=== PATIENT | male | born 1980 | race Caucasian/White ===

== ENCOUNTER 2016-10-28 05:51 | Emergency (ER) | payer BC ==
--- NOTE | 2016-10-28 06:18 | EDM.PDOC ---
ED HPI GENERAL MEDICAL PROBLEM - General Chief Complaint: Cardiovascular Problem Stated Complaint: A-FIB, HEART PROBLEMS Time Seen by Provider: 10/28/16 06:11 - History of Present Illness INITIAL COMMENTS - FREE TEXT/NARRATIVE: HISTORY AND PHYSICAL: History of present illness: Patient is a 36-year-old male with history of chronic intermittent nature fibrillation and hypothyroidism for which his medicines include metoprolol, eliquis, and thyroxine who presents with a concern of irregular heartbeat he's had no chest pain no shortness of breath no nausea vomiting no dizziness no other complaints. He states he's had this for years off and on these been cardioverted electrically multiple times he's followed by cardiology Dr. Green out of [facility]. Review of systems: As per history of present illness and below otherwise all systems reviewed and negative. Past medical history: As per history of present illness and as reviewed below otherwise noncontributory. Surgical history: As per history of present illness and as reviewed below otherwise noncontributory. Social history: No reported history of drug or alcohol abuse. Family history: As per history of present illness and as reviewed below otherwise noncontributory. Physical exam: HEENT: Atraumatic, normocephalic, pupils reactive, negative for conjunctival pallor or scleral icterus, mucous membranes moist, throat clear, neck supple, nontender, trachea midline. Lungs: Clear to auscultation, breath sounds equal bilaterally, chest nontender. Heart: S1S2, irregularly irregular with a rate ranging between 80 and 98 negative for clicks, rubs, or JVD. Abdomen: Soft, nondistended, nontender. Negative for masses or hepatosplenomegaly. Negative for costovertebral tenderness. Pelvis: Stable nontender. Genitourinary: Deferred. Rectal: Deferred. Extremities: Atraumatic, negative for cords or calf pain. Neurovascular unremarkable. Neuro: Awake, alert, oriented. Cranial nerves II through XII unremarkable. Cerebellum unremarkable. Motor and sensory unremarkable throughout. Exam nonfocal. Diagnostics: CBC CMP PT/INR troponin TSH chest x-ray EKG Therapeutics: IV O2 monitor Impression: #1 chronic intermittent atrial fibrillation #2 history of hypothyroidism Definitive disposition and diagnosis as appropriate pending reevaluation and review of above. Left Upper Chest Pain Score (Numeric/FACES): 2 - Related Data Allergies Allergy/AdvReac Type Severity Reaction Status Date / Time No Known Allergies Allergy Verified 10/28/16 05:59 Home Meds: Home Meds Apixaban [Eliquis] 5 mg PO BID 10/28/16 [History] Levothyroxine 25 mcg PO ACBREAKFAST 10/28/16 [History] Metoprolol Succinate 25 mg PO DAILY 10/28/16 [History] Omeprazole 20 mg PO DAILY 10/28/16 [History] ED ROS GENERAL - Review of Systems Review Of Systems: ROS reveals no pertinent complaints other than HPI. 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 Kolb who does not feel there is any role for cardioversion or admission at this time this is a chronic intermittent problem for which he is controlled with beta blockers and also on eliquis to manage stroke risk and that follow-up with his regular headstart teacher is in order. Last Recorded V/S: Last Vital Signs Temp 36.4 C 10/28/16 05:59 Pulse 108 H 10/28/16 05:59 Resp 16 10/28/16 05:59 BP 124/77 10/28/16 05:59 Pulse Ox 96 10/28/16 05:59 Departure - Departure Time of Disposition: 06:21 Disposition: Home, Self-Care 01 Condition: Good Clinical Impression: Atrial fibrillation Forms: ED Department Discharge Additional Instructions: The following information is given to patients seen in the emergency department who are being discharged to home. This information is to outline your options for follow-up care. We provide all patients seen in our emergency department with a follow-up referral. The need for follow-up, as well as the timing and circumstances, are variable depending upon the specifics of your emergency department visit. If you don't have a primary care physician on staff, we will provide you with a referral. We always advise you to contact your personal physician following an emergency department visit to inform them of the circumstance of the visit and for follow-up with them and/or the need for any referrals to a consulting specialist. The emergency department will also refer you to a specialist when appropriate. This referral assures that you have the opportunity for followup care with a specialist. All of these measure are taken in an effort to provide you with optimal care, which includes your followup. Under all circumstances we always encourage you to contact your private physician who remains a resource for coordinating your care. When calling for followup care, please make the office aware that this follow-up is from your recent emergency room visit. If for any reason you are refused follow-up, please contact the [facility] emergency department at and asked to speak to the emergency department charge nurse. Continue current medications follow-up with headstart teacher TIM as discussed continue current medications and return as needed as discussed
[2016-10-28 06:39] LABS: CHLORIDE,CL 108 mmol/L (98-110); SODIUM,NA 141 mmol/L (136-146)
[2016-10-28 06:44] VITALS: BP 112/70
--- NOTE | 2016-10-28 15:21 | CR ---
EXAM DATE: 10/28/16 PATIENT'S AGE: 36 Patient: GINGER BERNARD Facility: [place], [place] Site . Site : 1980 Study: XRay Chest [id number] 6:40:52 AM Ordering Physician: Abdelrahman Valiente Final Report: INDICATION: Atrial fibrillation. Chest tightness. Technique: AP portable chest x-ray. Findings: Heart size is upper limits normal mildly prominent. Pulmonary vascularity in the upper lungs is upper limits of normal is slightly prominent. The lungs are clear without infiltrate. Chest otherwise negative. Dictated by Uriel Zuleta MD @ Oct 28 2016 6:46AM (Electronic Signature) Report Signed by Proxy. LUIS
== END 2016-10-28 07:09 | disposition left against medical advice (07) ==
LOC: MW.ED 05:51
DX: I48.2 Chronic atrial fibrillation (principal); E03.9 Hypothyroidism, unspecified; Z79.899 Other long term (current) drug therapy
CPT/HCPCS: 36415; 71010; 71010-26; 80053; 84443; 84484; 85025; 85610; 93005; 99282; 99284-25